=== PATIENT | female | born 1995 | race Caucasian/White ===

== ENCOUNTER 2017-03-22 19:06 | Emergency (ER) | payer BC, MEDICAID ==
--- NOTE | 2017-03-30 17:49 | ER ---
ADMIT: 03/22/2017 RM/LOC: ER [facility] MR#: [id number] [id number] JHONNY HAWLEY [address] [place] [address] Emergency Room Report SEX: F AGE: 21 : 1995 DATE: 03/22/2017 ADDENDUM: This patient comes to the ER because she has been vomiting all day, unable to keep fluids down. She is in her first trimester . She has no vaginal bleeding and has only urinated one time today. Her abdomen is soft, nontender to palpation. Posterior pharynx is benign. Oral mucosa is dry. She was given IV of normal saline, a liter of bolus with Reglan. When I went to re-evaluate her, she was feeling quite a bit better. I wrote a prescription for Reglan. We will have her push fluids. Follow up with her primary as needed. Please see my T-sheet. DOMINGO Mccracken / Melvin Zapata MD / donna JOB #: [id number] CC: Ramirez Field MD, Attending Physician Julianna Carrasco MD, Family Physician
== END 2017-03-22 21:00 | disposition home or self-care (01) ==
LOC: ER 19:06
DX: O21.0 Mild hyperemesis gravidarum (principal); Z79.899 Other long term (current) drug therapy; Z3A.00 Weeks of gestation of pregnancy not specified